=== PATIENT | female | born 1975 | race Hispanic/Latino ===

== ENCOUNTER → 2020-12-18 | Day surgery (SDC) | payer BC ==
[~2020-12-18] MED LIST: BUPIVACAINE HCL 0.5% INJ 30 ML VIAL INJ ONE; CEFAZOLIN SOD 1 GM/NS 50ML 50 ML IV ONE; DEXAMETHASONE SOD PHOS INJ 4 MG/ML VIAL ONE; EPHEDRINE SULFATE INJ 50 MG/ML VIAL ONE; FENTANYL CITRATE/PF 100MCG/2 ML INJ ONE; KETOROLAC TROMETHAMINE 30 MG/ML VIAL ONE; LIDOCAINE HCL 2% JELLY 5 ML TUBE ONE; LIDOCAINE HCL 2% LOCAL INJ 5 ML SDV VIAL INJ ONE; MIDAZOLAM HCL 2 MG/2 ML VIAL ONE; MORPHINE SULFATE INJ 2 MG/ML SYR ONE; MUPIROCIN 2% OINT 22 GM TUBE ONE; ONDANSETRON HCL INJ 2MG/ML 2ML 2 MG/ML VIAL ONE; PROPOFOL IV EMULSION 10 MG/ML 20 ML VIAL ONE; SEVOFLURANE INHAL SOLN 250 ML PEN BTL ONE; TAMOXIFEN CITRA10 MG PO; TYLENOL # 31 EA PO; TYLENOL EXTRA500 MG PO
[2020-12-18 08:35] VITALS: BP 110/74
== END | disposition home or self-care (01) ==
LOC: OR 05:24
PROVIDERS: ATTEND Plastic Surgery
DX: M65.4 Radial styloid tenosynovitis [de Quervain] (principal); F41.9 Anxiety disorder, unspecified; Z01.812 Encounter for preprocedural laboratory examination; Z20.822 Contact with and (suspected) exposure to COVID-19
CPT/HCPCS: 25000 ×2; J0690; J1100; J1885; J2001 ×2; J2250; J2270; J2405; J2704; J3010; U0002